=== PATIENT | male | born 1995 | race Caucasian/White ===

== ENCOUNTER 2016-09-21 13:01 | Emergency (ER) | payer OTHER ==
[2016-09-21 13:21] VITALS: BP 114/41; PULSE 60; TEMP 98.1; BMI 25.8
--- NOTE | 2016-09-21 13:36 | PDOC ---
History of Present Illness - General Chief Complaint: Pain, Acute Stated Complaint: LEFT KNEE PAIN Time Seen by Provider: 09/21/16 13:05 - History of Present Illness Initial Comments: 09/21/16 13:33 Chief complaint: Left knee pain History of present illness: Patient twisted his left knee playing soccer yesterday. Persistent pain in the lateral knee. Difficult weightbearing and ambulating. Review of systems: No distal numbness tingling pain or weakness in the calf, ankle, or foot. No other injuries including injuries to the head neck chest abdomen spine and pelvis or other extremities Past medical history: Healthy male, no significant medical or surgical problems past or present, no medications. No prior knee injuries of a serious nature Social/family history reviewed and noncontributory Physical exam: Alert and oriented well-developed well-nourished no acute distress cheerful and cooperative Afebrile, vital signs normal The patient is favoring the left leg due to pain in the knee, walking mostly with support from his right leg and limping moderately. Right knee shows no swelling, effusion, or deformity. There is however a slight degree of lack of complete extension, and pain with attempted complete extension and full flexion. The patella and patellar retinaculum are intact and nontender. There is mild tenderness in the lateral joint space but no palpable mass. There is no stress tenderness or laxity of the LCL, MCL, or ACL. Lockman is negative. Sacha sign, however, is positive laterally. Impression: Most likely meniscus injury, rule out tibial plateau fracture Plan: X-ray and further orthopedic management depending on results. Past History - Past Medical History Allergies/Adverse Reactions: Allergies Allergy/AdvReac Type Severity Reaction Status Date / Time No Known Allergies Allergy Verified 09/21/16 13:27 Home Medications: Ambulatory Orders NK [No Known Home Medication] 09/21/16 Asthma: No Cancer: No Cardiac Disorders: Yes (PALPITATION) CVA: No COPD: No Dementia: No Diabetes: No HTN: No Seizures: No Thyroid Disease: No - Surgical History Appendectomy: Yes - Immunization History Td Vaccination: Yes Immunization Up to Date: Yes - Psycho/Social/Smoking Cessation Hx Anxiety: Yes Suicidal Ideation: No Smoking Status: Yes Smoking History: Current every day smoker Have you smoked in the past 12 months: Yes Number of Cigarettes Smoked Daily: 10 Information on smoking cessation initiated: Yes 'Breaking Loose' booklet given: 09/21/16 Hx Alcohol Use: Yes (SOCIAL) Drug/Substance Use Hx: No Substance Use Type: Alcohol Hx Substance Use Treatment: No *Physical Exam - Vital Signs Last Vital Signs Temp Pulse Resp BP Pulse Ox 98.1 F 60 14 114/41 100 09/21/16 13:02 09/21/16 13:02 09/21/16 13:02 09/21/16 13:02 09/21/16 13:02 ED Treatment Course - RADIOLOGY Radiology Studies Ordered: Category Date Time Status KNEE 2 POS-LEFT [RAD] Stat Radiology 09/21/16 13:05 Taken Medical Decision Making - Medical Decision Making 09/21/16 13:49 X-ray: Negative Suspect LCL sprain or cartilage injury Knee immobilizer applied. Patient more comfortable and ambulating well. No distal numbness tingling pain or weakness, good pulses maintain, good capillary refill. Rest ice elevation and Advil with follow-up orthopedist in one week if pain persists. Adequately ambulatory upon discharge to follow-up as directed *DC/Admit/Observation/Transfer Diagnosis at time of Disposition: Sprain of knee Qualifiers: Encounter type: initial encounter Involved ligament of knee: lateral collateral ligament Laterality: left Qualified Code(s): S83.422A - Sprain of lateral collateral ligament of left knee, initial encounter - Discharge Dispostion Disposition: HOME Condition at time of disposition: Improved Admit: No - Referrals Referrals: Omar Pederson MD [Staff Physician] - 1 week - Patient Instructions Printed Discharge Instructions: DI for Knee Sprain, How to Use a Knee Immobilizer
== END 2016-09-21 14:04 | disposition home or self-care (01) ==
LOC: FER 13:01
PROC: 2W3RX1Z Immobilization of Left Lower Leg using Splint (ICD-10-PCS; principal; 2016-09-21)
DX: S83.422A Sprain of lateral collateral ligament of left knee, initial encounter (principal); Y93.66 Activity, soccer; Y92.322 Soccer field as the place of occurrence of the external cause
CPT/HCPCS: 73560-TC-LT; 99283-25